=== PATIENT | female | born 1955 | race Caucasian/White ===

== ENCOUNTER 2021-11-17 20:23 | Emergency (ER) | payer OTHER ==
--- OUTSIDE RECORDS SUMMARY | 2021-11-17 20:27 | XMS REPORT | Continuity of Care Document ---
:1955 Author Organization [facility] t Address [address] [place] [address] Care Team Providers Name Role Phone [phone] Primary Care Physician Unavailable ANDRZEJ MORRISON Attending Clinician Unavailable CHASITY Attending Clinician Unavailable ALVARO Attending Clinician Unavailable Segun VILLELA Attending Clinician Unavailable Aria FREGOSO Attending Clinician Unavailable Misha Arroyo DO Attending Clinician Kya MENCHACA Attending Clinician Unavailable Payers Payer Name Policy Type Policy Number Effective Date Expiration Date S wai [employer]IGNA O [id number] 2012 2015 00:00:00 00:00:00 AETNA O [id number] 2016 2019 00:00:00 00:00:00 AETNA MEDICARE [id number] 2021 PPO 00:00:00 AET[employer] O [id number] 2018 00:00:00 Problems Condition Condition Condition Status Onset Resolution Last Treating Co mments Source Name Details Category Date Date Treatment Clinician Date No known No known Disease Unive rs active active ity of problems problems [facility] Allergies, Adverse Reactions, Alerts Allergy Allergy Status Severity Reaction(s) Onset Inactive Treating Comm ents Source Name Type Date Date Clinician CODEINE DRUG Active N/V 2017- Univers INGREDI 1-12 ity of 00:00: [place] 00 Medical Branch SULFA Drug Active Rash Univers (SULFONA Class 1-12 ity of MIDE 00:00: [place] ANTIBIOT 00 Medical ICS) Branch Codeine Propensi Active Nausea Univers ty to and/or 1-12 ity of adverse Vomiting 00:00: [place] reaction 00 Medical s Branch Sulfa Propensi Active Rash 2018-0 Univers (Sulfona ty to 1-12 ity of mide adverse 00:00: [place] Antibiot reaction 00 Medica l ics) s Branch MEPERIDI DRUG Active Hives~Swelli 2000-0 MD NE INGREDI ng 4-11 Anderso 00:00: n 00 SULFA Drug Active Hives~Itchin 2000-0 MD (SULFONA Class g~Swelling 4-11 [place] MIDE 00:00: n ANTIBIOT 00 ICS) MEPERIDI DRUG Active Hives~Swelli 2000-0 MD NE INGREDI ng 4-11 Anderso 00:00: n 00 SULFA Drug Active Hives~Itchin 2000-0 MD (SULFONA Class g~Swelling 4-11 [place] MIDE 00:00: n ANTIBIOT 00 ICS) MEPERIDI DRUG Active Hives~Swelli 2000-0 MD NE INGREDI ng 4-11 Anderso 00:00: n 00 SULFA Drug Active Hives~Itchin 2000-0 MD (SULFONA Class g~Swelling 4-11 [place] MIDE 00:00: n ANTIBIOT 00 ICS) MEPERIDI DRUG Active Hives~Swelli 2000-0 MD NE INGREDI ng 4-11 Anderso 00:00: n 00 SULFA Drug Active Hives~Itchin 2000-0 MD (SULFONA Class g~Swelling 4-11 [place] MIDE 00:00: n ANTIBIOT 00 ICS) MEPERIDI DRUG Active Hives~Swelli 2000-0 MD NE INGREDI ng 4-11 Anderso 00:00: n 00 SULFA Drug Active Hives~Itchin 2000-0 MD (SULFONA Class g~Swelling 4-11 [place] MIDE 00:00: n ANTIBIOT 00 ICS) MEPERIDI DRUG Active Hives~Swelli 2000-0 MD NE INGREDI ng 4-11 Anderso 00:00: n 00 SULFA Drug Active Hives~Itchin 2000-0 MD (SULFONA Class g~Swelling 4-11 [place] MIDE 00:00: n ANTIBIOT 00 ICS) MEPERIDI DRUG Active Hives~Swelli 2000-0 MD NE INGREDI ng 4-11 Anderso 00:00: n 00 SULFA Drug Active Hives~Itchin 2000-0 MD (SULFONA Class g~Swelling 4-11 [place] MIDE 00:00: n ANTIBIOT 00 ICS) MEPERIDI DRUG Active Hives~Swelli 2000-0 MD NE INGREDI ng 4-11 Anderso 00:00: n 00 SULFA Drug Active Hives~Itchin 2000-0 MD (SULFONA Class g~Swelling 4-11 [place] MIDE 00:00: n ANTIBIOT 00 ICS) MEPERIDI DRUG Active Hives~Swelli 2000-0 MD NE INGREDI ng 4-11 Anderso 00:00: n 00 SULFA Drug Active Hives~Itchin 2000-0 MD (SULFONA Class g~Swelling 4-11 [place] MIDE 00:00: n ANTIBIOT 00 ICS) MEPERIDI DRUG Active Hives~Swelli 2000-0 MD NE INGREDI ng 4-11 Anderso 00:00: n 00 SULFA Drug Active Hives~Itchin 2000-0 MD (SULFONA Class g~Swelling 4-11 [place] MIDE 00:00: n ANTIBIOT 00 ICS) MEPERIDI DRUG Active Hives~Swelli 2000-0 MD NE INGREDI ng 4-11 Anderso 00:00: n 00 SULFA Drug Active Hives~Itchin 2000-0 MD (SULFONA Class g~Swelling 4-11 [place] MIDE 00:00: n ANTIBIOT 00 ICS) MEPERIDI DRUG Active Hives~Swelli 2000-0 MD NE INGREDI ng 4-11 Anderso 00:00: n 00 SULFA Drug Active Hives~Itchin 2000-0 MD (SULFONA Class g~Swelling 4-11 [place] MIDE 00:00: n ANTIBIOT 00 ICS) MEPERIDI DRUG Active Hives~Swelli 2000-0 MD NE INGREDI ng 4-11 Anderso 00:00: n 00 SULFA Drug Active Hives~Itchin 2000-0 MD (SULFONA Class g~Swelling 4-11 [place] MIDE 00:00: n ANTIBIOT 00 ICS) MEPERIDI DRUG Active Hives~Swelli 2000-0 MD NE INGREDI ng 4-11 Anderso 00:00: n 00 SULFA Drug Active Hives~Itchin 2000-0 MD (SULFONA Class g~Swelling 4-11 [place] MIDE 00:00: n ANTIBIOT 00 ICS) MEPERIDI DRUG Active Hives~Swelli 2000-0 MD NE INGREDI ng 4-11 Anderso 00:00: n 00 SULFA Drug Active Hives~Itchin 2000-0 MD (SULFONA Class g~Swelling 4-11 [place] MIDE 00:00: n ANTIBIOT 00 ICS) MEPERIDI DRUG Active Hives~Swelli 2000-0 MD NE INGREDI ng 4-11 Anderso 00:00: n 00 SULFA Drug Active Hives~Itchin 2000-0 MD (SULFONA Class g~Swelling 4-11 [place] MIDE 00:00: n ANTIBIOT 00 ICS) Social History Social Habit Start Date Stop Date Quantity Comments Source Sex Assigned At Universit y of [facility] Tobacco use and 2017-10-06 2017-10-06 Never used Universit y of exposure 00:00:00 00:00:00 [facility] Alcohol intake 2017-10-06 2017-10-06 Current University of 00:00:00 00:00:00 non-drinker of [facility] [place] [facility] alcohol Branch (finding) Smoking Status Start Date Stop Date Source Current every day smoker 2017-10-06 00:00:00 Uni versity of [facility] Medications Ordered Filled Start Stop Current Ordering Indication Dosage Frequency Signature Comments Components Source Medication Medication Date Date Medication? Clinician (SIG) Name Name HYDROcodone Yes TK 1 T PO U nivers -acetaminop 1-12 Q 8 H PRN ity of hen 7.5-325 00:00: P [place] mg per 00 Medical tablet Branch pravastatin 2016-07 Yes 40mg Take 40 mg Univers 40 mg 2-12 by mouth ity of tablet 00:00: daily. [place] 00 [facility] [place] amlodipine- 2016-07 Yes TAKE 1 Univ ers benazepril 1-02 CAPSULE BY ity of 5-20 mg per 00:00: MOUTH [place] capsule 00 EVERY DAY [facility] [place] Immunizations Ordered Filled Immunization Date Status Comments Sourc e Immunization Name Name SARS-COV-2 COVID-19 2020-08-14 Completed Unive rsity of PFIZER VACCINE 00:00:00 [facility] [place] [facility] Vital Signs Vital Name Observation Time Observation Value Comments Source HEIGHT 2020-07-03 11:01:00 162 cm WEIGHT 2020-07-03 11:01:00 53.8 kg HEIGHT 2020-02-05 13:11:00 162 cm WEIGHT 2020-02-05 13:11:00 53.8 kg Procedures This patient has no known procedures. 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 [id number] 15:16:57 Jp arroyo 2020-01-19 Outpatient PRINCE SPENCER PALMER [id number] 10:14:52 KERVIN arroyo 2021-11-14 2021-11-14 Outpatient CHASITY [facility] [id number] 00:00:00 00:00:00 SHONA [id number] Metho di 2021-11-14 2021-11-14 Outpatient CHASITY [facility] [id number] [address] [place] [address] 00:00:00 00:00:00 SHONA 006 Metho di 2021-11-14 2021-11-14 Outpatient CHASITY [facility] [id number] [address] [place] [address] 00:00:00 00:00:00 SHONA 083 Metho di 2021-09-23 2021-09-23 Outpatient SHAQ JOHN MDA MDA [id number] 13:03:43 13:45:42 JASON arroyo 2021-09-23 2021-09-23 Outpatient SHAQ VILLELA MDA MDA [id number] 11:31:13 11:31:13 CONNIE arroyo 2020-09-04 2020-09-04 Outpatient Yamileth FREGOSO [facility] [id number] Univers 11:50:00 11:50:00 ABHISHEK [id number] [facility] 2020-09-04 2020-09-04 Outpatient Yamileth FREGOSO [facility] [id number] Univers 11:50:00 11:50:00 ABHISHEK [facility] 2020-08-15 2020-08-15 Patient Cruz [facility] [id number] Univers 00:00:00 00:00:00 Outreach Edmundo PRIMARY [id number] i ty of [facility] [id number] Carlos KELLY [id number] [address] 2020-08-14 2020-08-14 Outpatient Yamileth FREGOSO [facility] [id number] Univers 12:10:00 12:10:00 ABHISHEK [id number] [facility] 2020-08-14 2020-08-14 Outpatient Yamileth FREGOSO [facility] [id number] Univers 12:10:00 12:10:00 ABHISHEK [facility] 2020-08-13 2020-08-13 Outpatient Yamileth FREGOSO [facility] [id number] Univers 09:10:00 09:10:00 ABHISHEK [id number] [facility] 2020-08-01 2020-08-01 Outpatient EL MANOHAR, MDA MDA [id number] 11:40:16 11:40:16 CONNIE arroyo 2020-07-03 2020-07-03 Outpatient EL MANOHAR, MDA MDA [id number] MD 14:38:23 14:55:21 CONNIE arroyo 2020-07-03 2020-07-03 Outpatient EL MANOHAR, MDA MDA [id number] 13:02:39 13:02:39 CONNIE arroyo 2020-07-03 2020-07-03 Outpatient EL MANOHAR, MDA MDA [id number] MD 10:32:18 11:54:48 CONNIE arroyo 2020-07-03 2020-07-03 Outpatient EL MANOHAR, MDA MDA [id number] 11:43:54 11:43:54 CONNIE arroyo 2020-07-03 2020-07-03 Outpatient EL MDA MDA [id number] 07:41:08 07:41:08 Dano arroyo 2020-02-05 2020-02-05 Outpatient EL MANOHAR, MDA MDA [id number] MD 14:51:41 14:51:41 CONNIE arroyo 2020-02-05 2020-02-05 Outpatient EL MANOHAR, MDA MDA [id number] MD 12:50:51 14:18:32 CONNIE arroyo 2020-02-05 2020-02-05 Outpatient EL MANOHAR, MDA MDA [id number] MD 13:48:58 13:48:58 CONNIE arroyo 2020-02-05 2020-02-05 Outpatient EL MANOHAR, MDA MDA [id number] MD 00:00:00 00:00:00 CONNIE arroyo 2020-02-05 2020-02-05 Outpatient EL MANOHAR, MDA MDA [id number] MD 00:00:00 00:00:00 CONNIE arroyo 2020-01-29 2020-01-29 Outpatient EL MANOHAR, MDA MDA [id number] MD 00:00:00 00:00:00 CONNIE arroyo 2020-01-17 2020-01-17 Outpatient EL [facility] MDA MDA [id number] MD 09:08:34 23:59:00 Dano MALHOTRA 2020-01-16 2020-01-16 Outpatient EL MANOHAR, MDA MDA [id number] MD 16:24:22 16:24:22 CONNIE arroyo 2020-01-16 2020-01-16 Outpatient EL MANOHAR, MDA MDA [id number] 13:02:20 13:02:20 CONNIE arroyo 2020-01-16 2020-01-16 Outpatient EL MANOHAR, MDA MDA [id number] MD 11:53:33 11:53:33 CONNIE arroyo 2020-01-16 2020-01-16 Outpatient EL MANOHAR, MDA MDA [id number] 10:45:29 11:53:06 CONNIE arroyo 2020-01-16 2020-01-16 Outpatient EL MANOHAR, MDA MDA [id number] 10:24:56 10:43:19 CONNIE arroyo 2020-01-16 2020-01-16 Outpatient EL MANOHAR, MDA MDA [id number] MD 00:00:00 00:00:00 CONNIE arroyo 2020-01-12 2020-01-12 Outpatient EL MANOHAR, MDA MDA [id number] 11:08:14 11:21:03 CONNIE arroyo Results This patient has no known results.
[2021-11-17] MEDS ORDERED: HYDROCODONE/APAP 7.5/325 MG TAB ONE (21:42)
--- NOTE | 2021-11-17 22:17 | EDPHYS ---
Physician Documentation [facility] Name: Sandra Jacques Age: 66 yrs Sex: Female : 1955 Arrival Date: 11/17/2021 Time: 20:28 Bed 13 Private MD: ED Physician Cuco Solis HPI: 11/17 22:06 This 66 yrs old Female presents to ER via Wheelchair with complaints of Fall Injury, jr8 Arm Injury. 22:06 Details of fall: The patient fell from an upright position, while standing. Onset: The jr8 symptoms/episode began/occurred acutely, today. Associated injuries: The patient sustained left arm. Severity of symptoms: At their worst the symptoms were moderate, in the emergency department the symptoms are unchanged. The patient has not experienced similar symptoms in the past. The patient has not recently seen a physician. Stated that she turned corner in bedroom and fell landing on left elbow and arm. Pain with hematoma since incident . Historical: - Allergies: 20:49 Sulfa (Sulfonamide Antibiotics); lp1 20:49 Demerol; lp1 - Home Meds: 20:49 benazepril oral [Active]; lp1 - PMHx: 20:49 Hypertensive disorder; back problem; lp1 - PSHx: 20:49 None; lp1 - Immunization history:: Adult Immunizations up to date, Client reports receiving the 2nd dose of the Covid vaccine. - Social history:: Smoking status: Patient reports the use of cigarette tobacco products, smokes one-half pack cigarettes per day. ROS: 22:06 Eyes: Negative for injury, pain, redness, and discharge, ENT: Negative for injury, jr8 pain, and discharge, Neck: Negative for injury, pain, and swelling, Cardiovascular: Negative for chest pain, palpitations, and edema, Respiratory: Negative for shortness of breath, cough, wheezing, and pleuritic chest pain, Abdomen/GI: Negative for abdominal pain, nausea, vomiting, diarrhea, and constipation, Back: Negative for injury and pain, Skin: Negative for injury, rash, and discoloration, Neuro: Negative for headache, weakness, numbness, tingling, and seizure. 22:06 MS/extremity: Positive for ecchymosis, pain, swelling, tenderness, of the left elbow. Exam: 22:06 Constitutional: This is a well developed, well nourished patient who is awake, alert, jr8 and in no acute distress. Head/Face: Normocephalic, atraumatic. Eyes: Pupils equal round and reactive to light, extra-ocular motions intact. Lids and lashes normal. Conjunctiva and sclera are non-icteric and not injected. Cornea within normal limits. Periorbital areas with no swelling, redness, or edema. ENT: Nares patent. No nasal discharge, no septal abnormalities noted. Tympanic membranes are normal and external auditory canals are clear. Oropharynx with no redness, swelling, or masses, exudates, or evidence of obstruction, uvula midline. Mucous membranes moist. Neck: Trachea midline, no thyromegaly or masses palpated, and no cervical lymphadenopathy. Supple, full range of motion without nuchal rigidity, or vertebral point tenderness. No Meningismus. Chest/axilla: Normal chest wall appearance and motion. Nontender with no deformity. No lesions are appreciated. Cardiovascular: Regular rate and rhythm with a normal S1 and S2. No gallops, murmurs, or rubs. Normal PMI, no JVD. No pulse deficits. Respiratory: Lungs have equal breath sounds bilaterally, clear to auscultation and percussion. No rales, rhonchi or wheezes noted. No increased work of breathing, no retractions or nasal flaring. Abdomen/GI: Soft, non-tender, with normal bowel sounds. No distension or tympany. No guarding or rebound. No evidence of tenderness throughout. Back: No spinal tenderness. No costovertebral tenderness. Full range of motion. Skin: Warm, dry with normal turgor. Normal color with no rashes, no lesions, and no evidence of cellulitis. Neuro: Awake and alert, GCS 15, oriented to person, place, time, and situation. Cranial nerves II-XII grossly intact. Motor strength 5/5 in all extremities. Sensory grossly intact. Cerebellar exam normal. Normal gait. 22:06 Musculoskeletal/extremity: Extremities: grossly normal except: noted in the left elbow: ecchymosis, pain, swelling, tenderness, ROM: Decreased ROM secondary to pain. Will not let me actively range arm, Circulation is intact in all extremities. Sensation intact. Vital Signs: 20:50 BP 96 / 58; Pulse 93; Resp 18; Temp 97(TE); Pulse Ox 100% on R/A; Weight 45.63 kg (R); lp1 Height 5 ft. 3 in. (160.02 cm); Pain 8/10; 23:00 BP 100 / 62; Pulse 82; Resp 17; Pulse Ox 100% on R/A; sm5 20:50 Body Mass Index 17.82 (45.63 kg, 160.02 cm) lp1 Procedures: 22:53 Splinting: Splint applied to left arm using Orthoglass splint, applied by nurse. jr8 Examined by me, post splint application: neurovascular intact, 2+ distal pulses palpable, brisk capillary refill noted, Patient tolerated well. MDM: 21:02 Patient medically screened. jr8 22:15 Data reviewed: vital signs, nurses notes, radiologic studies, plain films. Data jr8 interpreted: Pulse oximetry: on room air is 100 %. Interpretation: normal. Counseling: I had a detailed discussion with the patient and/or guardian regarding: the historical points, exam findings, and any diagnostic results supporting the discharge/admit diagnosis, radiology results, the need for outpatient follow up, a orthopedic surgeon, to return to the emergency department if symptoms worsen or persist or if there are any questions or concerns that arise at home. 11/17 21:20 Order name: Elbow Left 3 View XRAY; Complete Time: 22:53 jr8 11/17 21:20 Order name: Forearm Left XRAY; Complete Time: 22:53 jr8 11/17 22:14 Order name: Posterior Elbow Splint; Complete Time: 22:46 jr8 Administered Medications: 21:43 Drug: [place] (HYDROcodone-acetaminophen) (7.5 mg-325 mg) 1 tabs Route: PO; lp1 Disposition Summary: 11/17/21 22:17 Discharge Ordered Location: Home jr8 Problem: new jr8 Symptoms: have improved jr8 Condition: Stable jr8 Diagnosis - Displaced fracture of olecranon process without intraarticular extension of left jr8 ulna Followup: jr8 - With: Washington Ordonez MD - When: 2 - 3 days - Reason: Recheck today's complaints, Continuance of care, Re-evaluation by your physician Discharge Instructions: - Discharge Summary Sheet jr8 - Olecranon Fracture jr8 Forms: - Medication Reconciliation Form jr8 - Thank You Letter jr8 - Antibiotic Education jr8 - Prescription Opioid Use jr8 Prescriptions: - Tylenol-Codeine #3 300 mg-30 mg Oral - take 2 tablet by ORAL route every 8 hours As needed; 30 tablet; Refills: 0, jr8 Product Selection Permitted - Zofran 4 mg Oral Tablet - take 1 tablet by ORAL route every 12 hours As needed; 20 tablet; Refills: 0, jr8 Product Selection Permitted Addendum: 11/20/2021 07:13 Co-signature as Attending Physician, Cuco Solis MD I agree with the assessment and c persaud plan of care. Signatures: Dispatcher [employer] [facility] Cuco Solis MD MD cha Pena, Laura, RN RN lp1 Hero Doran PA PA jr8
--- NOTE | 2021-11-17 22:17 | ER ---
Nurse's Notes [facility] Name: Sandra Jacques Age: 66 yrs Sex: Female : 1955 Arrival Date: 11/17/2021 Time: 20:28 Bed 13 Private MD: Diagnosis: Displaced fracture of olecranon process without intraarticular extension of left ulna Presentation: 11/17 20:47 Chief complaint: Patient states: Reports fall this evening while walking around bed, hx lp1 of back problems, gets stiff with weather changes, causes difficulty walking; Reports pain to left elbow, denies hitting head. Care prior to arrival: None. Mechanism of Injury: Fall from standing position. 20:47 Acuity: OLEG 3 lp1 20:47 Method Of Arrival: Wheelchair lp1 20:50 Coronavirus screen: At this time, the client does not indicate any symptoms associated lp1 with coronavirus-19. Ebola Screen: No symptoms or risks identified at this time. Initial Sepsis Screen: Does the patient meet any 2 criteria? No. Patient's initial sepsis screen is negative. Does the patient have a suspected source of infection? No. Patient's initial sepsis screen is negative. Risk Assessment: Do you want to hurt yourself or someone else? Patient reports no desire to harm self or others. Onset of symptoms was November 17, 2021. Historical: - Allergies: 20:49 Sulfa (Sulfonamide Antibiotics); lp1 20:49 Demerol; lp1 - Home Meds: 20:49 benazepril oral [Active]; lp1 - PMHx: 20:49 Hypertensive disorder; back problem; lp1 - PSHx: 20:49 None; lp1 - Immunization history:: Adult Immunizations up to date, Client reports receiving the 2nd dose of the Covid vaccine. - Social history:: Smoking status: Patient reports the use of cigarette tobacco products, smokes one-half pack cigarettes per day. Screenin:07 Abuse screen: Denies threats or abuse. Denies injuries from another. Nutritional lp1 screening: No deficits noted. Tuberculosis screening: No symptoms or risk factors identified. Fall Risk None identified. Assessment: 21:35 General: Appears uncomfortable, Behavior is appropriate for age. Pain: Pain: Complains lp1 of pain in left elbow Pain currently is 8 out of 10 on a pain scale. Quality of pain is described as aching. 21:36 Neuro: Level of Consciousness is awake, alert, obeys commands, Oriented to person, lp1 place, time, situation. Cardiovascular: Patient's skin is warm and dry. Respiratory: Respiratory effort is even, unlabored. GI: No signs and/or symptoms were reported involving the gastrointestinal system. : No signs and/or symptoms were reported regarding the genitourinary system. EENT: No signs and/or symptoms were reported regarding the EENT system. Derm: Skin is thin, Skin is dry, Skin is normal, Abrasion noted left forearm, left elbow. Musculoskeletal: Range of motion: limited in left elbow Bony deformity noted of left elbow. Vital Signs: 20:50 BP 96 / 58; Pulse 93; Resp 18; Temp 97(TE); Pulse Ox 100% on R/A; Weight 45.63 kg (R); lp1 Height 5 ft. 3 in. (160.02 cm); Pain 8/10; 23:00 BP 100 / 62; Pulse 82; Resp 17; Pulse Ox 100% on R/A; sm5 20:50 Body Mass Index 17.82 (45.63 kg, 160.02 cm) lp1 ED Course: 20:28 Patient arrived in ED. ag3 20:48 Triage completed. lp1 20:48 Arm band placed on right wrist. lp1 21:01 Hero Doran PA is PHCP. jr8 21:01 Cuco Solis MD is Attending Physician. jr8 21:18 Sharita Michaud, LATA is Primary Nurse. sm5 21:44 Patient has correct armband on for positive identification. lp1 22:06 Wound care: to abrasion, located on left elbow and palmar aspect of left forearm was lp1 cleaned with Hibiclens, irrigated with normal saline, dressed with Neosporin, band aid. 22:12 Elbow Left 3 View XRAY In Process Unspecified. EDMS 22:12 Forearm Left XRAY In Process Unspecified. EDMS 22:16 Washington Ordonez MD is Referral Physician. jr8 23:01 No provider procedures requiring assistance completed. Patient did not have IV access sm5 during this emergency room visit. Orthoglass splint: posterior long arm splint applied to the left arm. Sling applied to left arm. Administered Medications: 21:43 Drug: [place] (HYDROcodone-acetaminophen) (7.5 mg-325 mg) 1 tabs Route: PO; lp1 Outcome: 22:17 Discharge ordered by . jer 23:01 Discharged to home via wheelchair, with family. addie 23:01 Condition: stable 23:01 Discharge instructions given to patient, family, Instructed on discharge instructions, follow up and referral plans. no drinking with medication, medication usage, Demonstrated understanding of instructions, follow-up care, medications, Prescriptions given X 2. 23:02 Patient left the ED. [email or web address] Signatures: Dispatcher [employer] EDMS Monika Fraser RN RN lp1 Hero Doran PA PA jr8 Gomez, Alice 3 Sharita Michaud, LATA RN sm5 Corrections: (The following items were deleted from the chart) 22:06 21:35 Pain: lp1 lp1
--- NOTE | 2021-11-17 22:49 | RAD REPORT ---
EXAM DESCRIPTION: RAD - Forearm Left - 11/17/2021 10:10 pm CLINICAL HISTORY: PAIN COMPARISON: No comparisons FINDINGS/IMPRESSION: No acute fracture. No malalignment. No significant focal degenerative changes.
--- NOTE | 2021-11-17 22:52 | RAD REPORT ---
EXAM DESCRIPTION: RAD - Elbow Left 3 View - 11/17/2021 10:10 pm CLINICAL HISTORY: PAIN COMPARISON: No comparisons FINDINGS: Displaced olecranon fracture. There is approximately 7 millimeters of maximal displacement . Significant soft tissue swelling at the olecranon bursa. No dislocation . IMPRESSION: Displaced olecranon fracture.
[2021-11-18 03:46] VITALS: TEMP 97; O2SAT 100
[2021-11-18 03:48] VITALS: BP 100/62
== END 2021-11-17 23:02 | disposition home or self-care (01) ==
LOC: ER 20:23
PROC: 2W39X1Z Immobilization of Left Upper Extremity using Splint (ICD-10-PCS; principal; 2021-11-17)
DX: S52.022A Displaced fracture of olecranon process without intraarticular extension of left ulna, initial encounter for closed fracture (principal); W01.0XXA Fall on same level from slipping, tripping and stumbling without subsequent striking against object, initial encounter; Y93.89 Activity, other specified; Y92.013 Bedroom of single-family (private) house as the place of occurrence of the external cause; F17.210 Nicotine dependence, cigarettes, uncomplicated; Z88.2 Allergy status to sulfonamides; Z88.6 Allergy status to analgesic agent; I10 Essential (primary) hypertension
CPT/HCPCS: 99284

== ENCOUNTER 2021-11-25 08:08 | Day surgery (SDC) | payer OTHER ==
[2021-11-25] MEDS ORDERED: Ringers Lactate 1,000 ML IV ONE (08:39)
[2021-11-25] MEDS ORDERED: NA CHLORIDE 0.9% 50 ML ONE (08:39)
[2021-11-25] MEDS ORDERED: FENTANYL CITR 100 MCG/2 ML ONE (10:01)
[2021-11-25] MEDS ORDERED: MIDAZOLAM HCL 2 MG/2 ML INJ ONE ×2 (10:01→11:40)
[2021-11-25] MEDS ORDERED: LIDOCAINE 2% MPF 5 ML VIAL ONE ×2 (10:01→11:40)
[2021-11-25] MEDS ORDERED: propofoL 200 MG/20 ML VIAL IV ONE ×2 (10:01→11:40)
[2021-11-25] MEDS ORDERED: ONDANSETRON 4 MG/2 ML VIAL ONE ×2 (10:01→14:37)
[2021-11-25] MEDS: CEFAZOLIN SODIUM 1 GM/VIAL ONE ×2 (11:23→11:56)
[2021-11-25] MEDS ORDERED: FENTANYL CITR 250 MCG/5 ML ONE (11:40)
[2021-11-25] MEDS ORDERED: Phenylephrine HCl 10 MG/ML 1 ML VIAL ONE (12:29)
[2021-11-25] MEDS: HYDROMORPHONE HCL 1 MG/ML INJ ONE ×2 (13:50→13:55)
[2021-11-25] MEDS ORDERED: ROPLVACAINE HCL 20 ML ONE (14:16)
[2021-11-25] MEDS ORDERED: dexAMETHasone 10 MG/ML VIAL ONE (14:16)
[2021-11-25] MEDS ORDERED: LIDOCAINE 1% MPF 5 ML VIAL ONE (14:16)
--- NOTE | 2021-11-25 14:58 | RAD REPORT ---
EXAM DESCRIPTION: RAD - Fluoroscopy <1 Hour - 11/25/2021 2:40 pm FINDINGS: There were 7 portable C-arm views submitted from fluoroscopic assisted placement of fractu re fixation hardware in the olecranon. No suspicious or unexpected findings. Fluoro time was 0.5 minutes. Cumulative dose was 0.516 mGy.
[2021-11-25 15:41] VITALS: TEMP 97; O2SAT 98
[2021-11-25 17:14] VITALS: BP 110/68
--- NOTE | 2021-11-26 04:13 | OP ---
Date of Procedure: 11/25/2021 Surgeon: Washington Ordonez MD Preoperative Diagnosis: Left displaced olecranon fracture. Postoperative Diagnosis: Left displaced olecranon fracture. Procedure: Left olecranon fracture open reduction with internal fixation using tension band techniqu e. Estimated Blood Loss: Less than 10 cc. Complications: There were no complications. Specimen: No pathology specimen sent. Indications: Ms. Jacques is a 66-year-old female who unfortunately fell injuring her left upper extre mity. She was seen and examined in my office where she had multiple small abrasions, but no large ab rasions or any injury deep to dermis. She is neurovascularly intact. X-rays revealed a widely displ aced apparently two-part olecranon fracture, which definitely goes within the joint with no sign of p roblems with the radial head. Risks, benefits, and alternatives of different methods of treatments h ave been discussed with her and we will proceed with open reduction and internal fixation. Description Of Procedure: The patient was taken to the operating room and placed in supine position. General anesthesia was obtained by staff. Following this, a well-padded tourniquet was placed on s uperior left arm. The left upper extremity was prepped and draped in usual sterile fashion for proce dure. The arm was then elevated, but not exsanguinated and the tourniquet was raised. A standard in cision was made along the distal ulna with care being taken to avoid the absolute tip of the olecrano n. Full-thickness flaps were then developed and the fracture site is easily seen. The fracture site was then cleansed and the arm was extended. The towel clip was used to reduce the fracture. It logan ears to be reduced very well. After this, two 0.062 K-wires were then placed with 1 exiting the ante rior cortex and the other going down the shaft and a transverse drill hole was then made a little mor e distal in the ulna. An 18-gauge wire was then used in a [id number] pattern and tightened hold ing the fracture well with flexion and extension of the elbow. The wire was then cut and bent over a nd the pins were then cut and bent and further impacted to avoid prominence. At the conclusion of case, this was observed under biplanar C-arm radiography and appears to have very good reduction an d the pins appear to be appropriately placed as planned. The fracture visually appears well reduced. The wound was irrigated and the skin was closed using interrupted horizontal mattress nylon sutures . This was followed by placement of an Aquacel dressing as well as a very well-padded soft roll as w ell as a posterior splint. She was then placed in an Paulo wrap, awakened and taken to recovery room i n good condition. There were no complications. /RIANNA Voice ID: [id number] Report ID: [id number]
== END 2021-11-25 16:40 | disposition home or self-care (01) ==
LOC: OR 08:08
PROVIDERS: ATTEND Orthopaedic Surgery
PROC: 0PSL04Z Reposition Left Ulna with Internal Fixation Device, Open Approach (ICD-10-PCS; principal; 2021-11-25 10:00)
DX: S52.032A Displaced fracture of olecranon process with intraarticular extension of left ulna, initial encounter for closed fracture (principal); I10 Essential (primary) hypertension; Z88.6 Allergy status to analgesic agent; Z88.2 Allergy status to sulfonamides; Z20.822 Contact with and (suspected) exposure to COVID-19
CPT/HCPCS: 24685; U0003; J2704 ×2; J2370; J2250; J3010; J1100; J2795; J1170; J7120; J2405 ×2; J0690; 76000

== ENCOUNTER 2023-12-22 13:22 | Emergency (ER) | payer OTHER ==
--- NOTE | 2023-12-22 13:53 | RAD REPORT ---
EXAM DESCRIPTION: Lo Snell Left12/22/2023 1:41 pm CLINICAL HISTORY: Left leg pain status post injury FINDINGS: Mildly depressed fracture lateral tibial plateau. Fracture extends inferiorly approximatel y 13 centimeters. It is spiral in appearance and mildly displaced. Fracture also involves the tibial spine. Mildly displaced fracture fibular neck
--- NOTE | 2023-12-22 15:12 | EDPHYS ---
Physician Documentation [facility] Name: Sandra Jacques Age: 68 yrs Sex: Female : 1955 Arrival Date: 12/22/2023 Time: 13:22 Bed 8 Private MD: ED Physician Joo Dixon HPI: 12/21 15:09 This 68 yrs old Female presents to ER via EMS with complaints of Fall Injury. rn 15:09 Details of fall: The patient fell from an upright position, while walking. Onset: The rn symptoms/episode began/occurred just prior to arrival. Associated injuries: The patient sustained Left leg. Severity of symptoms: At their worst the symptoms were moderate, in the emergency department the symptoms are unchanged. The patient has not experienced similar symptoms in the past. The patient has not recently seen a physician. Patient reports fall, tripped while walking out the door, landed on left leg on concrete. Unable to ambulate. Significant hematoma. Given ketamine by EMS. Historical: - Allergies: 13:25 Demerol; ld1 13:25 Sulfa (Sulfonamide Antibiotics); ld1 - PMHx: 13:25 back problem; Hypertensive disorder; ld1 - Immunization history:: Adult Immunizations up to date. - Infectious Disease History:: Denies. - Social history:: Smoking status: Patient denies any tobacco usage or history of. - Family history:: not pertinent. - Hospitalizations: : No recent hospitalization is reported. ROS: 15:09 Constitutional: Negative for fever, chills, and weight loss, Neck: Negative for injury, rn pain, and swelling, Cardiovascular: Negative for chest pain, palpitations, and edema, Respiratory: Negative for shortness of breath, cough, wheezing, and pleuritic chest pain, Abdomen/GI: Negative for abdominal pain, nausea, vomiting, diarrhea, and constipation, Back: Negative for injury and pain, MS/Extremity: Positive for left lower leg injury and swelling Neuro: Negative for headache, weakness, numbness, tingling, and seizure, Exam: 15:09 Constitutional: This is a well developed, well nourished patient who is awake, alert, rn and in no acute distress. Head/Face: Normocephalic, atraumatic. Neck: No midline cervical tenderness Back: No spinal tenderness. MS/ Extremity: Pulses equal, no cyanosis. Neurovascular intact. Large hematoma proximal pretibial region without open wound, unable to actively or passively flex left knee due to pain. No hip tenderness. Neuro: Awake and alert, GCS 15 Vital Signs: 13:25 BP 110 / 65; Pulse 80; Resp 18; Pulse Ox 100% on R/A; ld1 13:25 Temp 97.6(TE); Weight 52.16 kg; Height 5 ft. 2 in. ; Pain 7/10; ld1 16:24 BP 126 / 77; Pulse 84; Resp 18; Pulse Ox 100% on R/A; ld1 13:25 Body Mass Index 21.03 (52.16 kg, 157.48 cm) ld1 13:25 Pain Scale: Adult ld1 MDM: 13:24 Patient medically screened. rn 15:09 Differential diagnosis: contusion, fracture. Data reviewed: vital signs, nurses notes, rn radiologic studies, plain films, and as a result, I will discharge patient. Counseling: I had a detailed discussion with the patient and/or guardian regarding the historical points, exam findings, and any diagnostic results supporting the discharge/admit diagnosis, radiology results, the need for outpatient follow up, to return to the emergency department if symptoms worsen or persist or if there are any questions or concerns that arise at home. Response to treatment: the patient's symptoms have markedly improved after treatment, and as a result, I will discharge patient. Special discussion: I discussed with the patient/guardian in detail that at this point there is no indication for admission to the hospital. It is understood, however, that if the symptoms persist or worsen the patient needs to return immediately for re-evaluation. ED course: Accepted for transfer to [facility] for complicated and comminuted tibial plateau fracture and fibular fracture. 12/21 13:24 Order name: XRAY Tib Fib LEFT; Complete Time: 14:00 rn Administered Medications: 13:43 CANCELLED (Duplicate Order): morphineor iv 1 mg IVP once over 2 mins rn 13:44 CANCELLED (Duplicate Order): ondansetron 4 mg IVP once; over 2 minutes rn 17:00 Drug: morphine IVP or IV 4 mg IVP once over 4 mins Route: IVP; Infused Over: 4 mins; ld1 Site: left antecubital; Disposition Summary: 12/22/23 15:13 Transfer Ordered Notes: Transfer Location: [facility] rn Reason: Higher level of care rn Condition: Stable(12/22/23 15:13) rn Problem: new(12/22/23 15:13) rn Symptoms: have improved(12/22/23 15:13) rn Accepting Physician: (12/22/23 17:00) ld1 Diagnosis - Tibial plateau fracture, acute, closed, comminuted, left rn - Displaced transverse fracture of shaft of left fibula, initial encounter for closed rn fracture Forms: - Medication Reconciliation Form rn - SBAR form rn Signatures: Dispatcher [employer] EDMS Joo Dixno MD MD rn Sims, Lauren RN RN ld1 Corrections: (The following items were deleted from the chart) 13:43 13:43 IV Saline Lock ordered. rn rn 13:43 13:43 morphine IVP or IV 1 mg IVP once over 2 mins ordered. rn rn 13:44 13:43 Ondansetron IVP 4 mg IVP once; over 2 minutes ordered. rn rn 15:12 15:12 Home rn rn 15:12 15:12 new rn rn 15:12 15:12 have improved rn rn 15:12 15:12 Stable rn rn 15:12 15:12 Left tibial plateau fracture, closed, acute rn rn 17:00 15:13 rn ld1
--- NOTE | 2023-12-22 15:12 | ER ---
Nurse's Notes [facility] Name: Sandra Jacques Age: 68 yrs Sex: Female : 1955 Arrival Date: 12/22/2023 Time: 13:22 Bed 8 Private MD: Diagnosis: Tibial plateau fracture, acute, closed, comminuted, left;Displaced transverse fracture of shaft of left fibula, initial encounter for closed fracture Presentation: 12/21 13:25 Chief complaint: EMS states: toned out to patient home for fall, tripped over ledge and ld1 fell onto left leg - denies hitting head, negative LOC. C/O pain to left lower leg. Coronavirus screen: At this time, the client does not indicate any symptoms associated with coronavirus-19. Ebola Screen: No symptoms or risks identified at this time. Initial Sepsis Screen: Does the patient meet any 2 criteria? No. Patient's initial sepsis screen is negative. Does the patient have a suspected source of infection? No. Patient's initial sepsis screen is negative. Risk Assessment: Do you want to hurt yourself or someone else? Patient reports no desire to harm self or others. Onset of symptoms was December 22, 2023. Care prior to arrival: Medication(s) given: zofran 4 mg, 25mg Ketamine. 13:25 Method Of Arrival: EMS: [facility] ld1 13:25 Acuity: OLEG 3 ld1 Triage Assessment: 13:25 General: Appears in no apparent distress. comfortable, Behavior is calm, cooperative, ld1 appropriate for age. Pain: Complains of pain in left bah Pain does not radiate. Pain currently is 7 out of 10 on a pain scale. Quality of pain is described as throbbing, Pain began suddenly, Is continuous. EENT: No signs and/or symptoms were reported regarding the EENT system. Neuro: Level of Consciousness is awake, alert, obeys commands, Oriented to person, place, time, situation. Cardiovascular: Capillary refill < 3 seconds Patient's skin is warm and dry. Respiratory: Airway is patent Respiratory effort is even, unlabored. GI: Abdomen is flat, non-distended. : No signs and/or symptoms were reported regarding the genitourinary system. Derm: No signs and/or symptoms reported regarding the dermatologic system. Musculoskeletal: No signs and/or symptoms reported regarding the musculoskeletal system. Historical: - Allergies: 13:25 Demerol; ld1 13:25 Sulfa (Sulfonamide Antibiotics); ld1 - PMHx: 13:25 back problem; Hypertensive disorder; ld1 - Immunization history:: Adult Immunizations up to date. - Infectious Disease History:: Denies. - Social history:: Smoking status: Patient denies any tobacco usage or history of. - Family history:: not pertinent. - Hospitalizations: : No recent hospitalization is reported. Screenin:[address] [facility] ED Fall Risk Assessment (Adult) History of falling in the last 3 months, ld1 including since admission Yes- single mechanical fall (1 pt). Abuse screen: Denies threats or abuse. Denies injuries from another. Nutritional screening: No deficits noted. Tuberculosis screening: No symptoms or risk factors identified. Assessment: 13:29 Reassessment: See triage assessment. ld1 Vital Signs: 13:25 BP 110 / 65; Pulse 80; Resp 18; Pulse Ox 100% on R/A; ld1 13:25 Temp 97.6(TE); Weight 52.16 kg; Height 5 ft. 2 in. ; Pain 7/10; ld1 16:24 BP 126 / 77; Pulse 84; Resp 18; Pulse Ox 100% on R/A; ld1 13:25 Body Mass Index 21.03 (52.16 kg, 157.48 cm) ld1 13:25 Pain Scale: Adult ld1 ED Course: 13:24 Patient arrived in ED. rn 13:24 Joo Dixon MD is Attending Physician. rn 13:25 Nkechi Ag RN is Primary Nurse. ld1 13:25 Arm band placed on right wrist. ld1 13:28 Triage completed. ld1 13:29 Patient has correct armband on for positive identification. Placed in gown. Bed in low ld1 position. Call light in reach. Side rails up X2. monitoring tech on. Pulse ox on. NIBP on. Door closed. Noise minimized. Warm blanket given. 13:43 XRAY Tib Fib LEFT In Process Unspecified. EDMS 15:23 spoke with Brig[facility] she is currently on a transfer to [place] [facility] only [facility] one free truck. 15:42 Gabby with [facility] informed me with an ETA of 1.5 hour for a truck to transfer. bc6 15:46 Abraham with [facility] gave me an ETA of AN hour. bc6 16:15 canceled city transportation . bc6 16:51 [facility] here for [facility]. bc6 17:00 No provider procedures requiring assistance completed. Patient transferred, IV remains ld1 in place. Administered Medications: 13:43 CANCELLED (Duplicate Order): morphineor iv 1 mg IVP once over 2 mins rn 13:44 CANCELLED (Duplicate Order): ondansetron 4 mg IVP once; over 2 minutes rn 17:00 Drug: morphine IVP or IV 4 mg IVP once over 4 mins Route: IVP; Infused Over: 4 mins; ld1 Site: left antecubital; Medication: 13:29 VIS not applicable for this client. ld1 Outcome: 15:12 Discharge ordered by . rn 15:13 ER care complete, transfer ordered by . rn 17:00 Transferred by ground EMS to [facility], ld1 17:00 Condition: stable 17:00 Instructed on the need for transfer, 17:00 Patient left the ED. ld1 Signatures: Dispatcher [employer] EDJoo Dickey MD MD rn Sims, Lauren, RN RN ld1 Flores Espitia 6
[2023-12-22] MEDS ORDERED: MORPHINE 4 MG/ML SYR ONE (16:54)
[2023-12-22 17:48] VITALS: BP 126/77; TEMP 97.6; O2SAT 100
== END 2023-12-22 17:00 | disposition short-term general hospital (02) ==
LOC: ER 13:22
DX: S82.252A Displaced comminuted fracture of shaft of left tibia, initial encounter for closed fracture (principal); S82.452A Displaced comminuted fracture of shaft of left fibula, initial encounter for closed fracture; W18.30XA Fall on same level, unspecified, initial encounter; Z88.2 Allergy status to sulfonamides; Z88.5 Allergy status to narcotic agent
CPT/HCPCS: 96374; 99285